=== PATIENT | female | born 1955 | race Caucasian/White ===

== ENCOUNTER 2016-11-30 10:39 | Day surgery (SDC) | payer MEDICARE, OTHER ==
--- NOTE | ~2016-11-30 | EGD ---
EGD REPORT [facility] [place] [address] [id number] NAME: CLAIRE KOROMA : 55 STATUS : REG [facility] [place] PAT#: [id number] AGE: 61 ADM/REG DATE : 11/30/16 MR#: [id number] REPORT SERV DATE: 11/30/16 DICTATED BY: YAMILE ZEPEDA DATE: 11/30/16 REPORT STATUS : Draft [facility]ANS[facility]ED BY: [facility] DATE: 11/30/16 [facility] Center Patient Name: Claire Koroma Date of : 1955 Attending MD: YAMILE ZEPEAD MD Procedure Date No Time: 11/30/2016 Procedure: Upper GI endoscopy Indications: Dysphagia Referring MD: Varghese Gould MD, MICHELLE DUNNE JR. Medicines: Sedation Required Anesthesia Staff Assistance Complications: No immediate complications. Estimated blood loss: Minimal. Procedure: Pre-Anesthesia Assessment: - ASA Grade Assessment: IV - A patient with severe systemic disease that is a constant threat to life. After obtaining informed consent, the endoscope was passed under direct vision. Throughout the procedure, the patient's blood pressure, pulse, and oxygen saturations were monitored continuously. The GIF [id number] was introduced through the mouth, and advanced to the third part of duodenum. The upper GI endoscopy was accomplished without difficulty. The patient tolerated the procedure well. Findings: A benign-appearing, intrinsic mild stenosis was found at the gastroesophageal junction and was traversed. A guidewire was placed and the scope was withdrawn. Dilation was performed with a Savary dilator with mild resistance at 51 Fr and mild resistance at 54 Fr. LA Grade A (one or more mucosal breaks less than 5 mm, not extending between tops of 2 mucosal folds) esophagitis with no bleeding was found in the lower third of the esophagus. One non-bleeding cratered gastric ulcer with no stigmata of bleeding was found in the prepyloric region of the stomach. The lesion was 8 mm in largest dimension. Biopsies were taken with a cold forceps for histology. The examined duodenum was normal. Impression: - Benign-appearing esophageal stricture. Dilated. - LA Grade A reflux esophagitis. - Gastric ulcer with clean base. Biopsied. - Normal examined duodenum. Recommendation: - Await pathology results. - Patient has a contact number available for emergencies. The signs and symptoms of potential delayed EGD REPORT [address] [place]. [address] NAME: CLAIRE KOROMA : 55 STATUS : REG [facility]#: [id number] AGE: 61 ADM/REG DATE : 11/30/16 MR#: [id number] REPORT SERV DATE: 11/30/16 DICTATED BY: YAMILE ZEPEDA DATE: 11/30/16 REPORT STATUS : Draft TRANSCRIBED BY: [employer] DATE: 11/30/16 complications were discussed with the patient. Return to normal activities tomorrow. Written discharge instructions were provided to the patient. - Return to previous diet daily. - No aspirin, ibuprofen, naproxen, or other non-steroidal anti-inflammatory drugs. - Discharge patient to home. - Use sucralfate tablets 1 gram PO BID for 2 months. Procedure Code(s): --- Professional --- 80524, Esophagogastroduodenoscopy, flexible, transoral; with insertion of guide wire followed by passage of dilator(s) through esophagus over guide wire 81208, Esophagogastroduodenoscopy, flexible, transoral; with biopsy, single or multiple Diagnosis Code(s): --- Professional --- K22.2, Esophageal obstruction K21.0, Gastro-esophageal reflux disease with esophagitis K25.9, Gastric ulcer, unspecified as acute or chronic, without hemorrhage or perforation R13.10, Dysphagia, unspecified CPT copyright 2013 [employer]. All rights reserved. The codes documented in this report are preliminary and upon cartridge filler review may be revised to meet current compliance requirements. YAMILE ZEPEDA MD 11/30/2016 1:37 PM This report has been signed electronically. Number of Addenda: 0 Note Initiated On: 11/30/2016 12:58 PM Scope Withdrawal Time 0 hours 0 minutes 0 seconds [address] [id number]
[~2016-11-30 10:39] MED LIST: ALBUTEROL0.083 % INH; BALANCED B PO; CELEXA20 PO; COLCRYS0.6 MG PO; COMBIVENT RESPIM4 GM INH; FLONASE NAS; INCRUSE ELLI62.5 MCG INH; LIDODERM TOP; LINZESS 290 M290 MCG PO; MCZ25 PO; NEUR800 PO; P10 PO; PRILO PO; VALIUM10 MG PO; VITAMIN D31000 UNIT PO; ZANAFLEX2 MG PO; ZOCOR20 PO; ZOFRAN4
== END 2016-11-30 23:59 | disposition home health service (06) ==
LOC: DMU 10:39
PROVIDERS: Internal Medicine Gastroenterology
PROC: 0D748ZZ Dilation of Esophagogastric Junction, Via Natural or Artificial Opening Endoscopic (ICD-10-PCS; principal; 2016-11-30 13:00)
PROC: 0DB78ZX Excision of Stomach, Pylorus, Via Natural or Artificial Opening Endoscopic, Diagnostic (ICD-10-PCS; 2016-11-30 13:00)
DX: K22.2 Esophageal obstruction (principal); K21.0 Gastro-esophageal reflux disease with esophagitis; K25.9 Gastric ulcer, unspecified as acute or chronic, without hemorrhage or perforation; J44.9 Chronic obstructive pulmonary disease, unspecified; F41.9 Anxiety disorder, unspecified; M19.90 Unspecified osteoarthritis, unspecified site; M81.0 Age-related osteoporosis without current pathological fracture; F17.200 Nicotine dependence, unspecified, uncomplicated; Z88.8 Allergy status to other drugs, medicaments and biological substances; F32.9 Major depressive disorder, single episode, unspecified; Z90.710 Acquired absence of both cervix and uterus; Z98.51 Tubal ligation status; Z98.890 Other specified postprocedural states
CPT/HCPCS: 88305; 94640; J2370